=== PATIENT | male | born 1995 | race Caucasian/White ===

== ENCOUNTER 2017-09-15 00:23 | Emergency (ER) | payer OTHER ==
[~2017-09-15] VITALS: Ht 180.3 cm; Wt 96.9 kg
[2017-09-15 00:26] VITALS: TEMP 36.7; Ht 180.3 cm; Wt 96.9 kg
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
[2017-09-15 01:41] VITALS: BP 125/74; PULSE 73; O2SAT 96
[2017-09-15] MEDS ORDERED: OXYCODONE IR HOME PACK PO ONE (01:45)
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
== END 2017-09-15 01:42 | disposition home or self-care (01) ==
LOC: C.EDB 00:27
DX: S20.211A Contusion of right front wall of thorax, initial encounter (principal); R06.02 Shortness of breath; V89.9XXA Person injured in unspecified vehicle accident, initial encounter; F17.200 Nicotine dependence, unspecified, uncomplicated; Z88.5 Allergy status to narcotic agent